=== PATIENT | female | born 1940 | race Caucasian/White ===

== ENCOUNTER 2020-06-27 09:12 | Outpatient (REF) | payer OTHER, SELFPAY ==
[2020-06-27 11:45] LABS: Alanine Aminotransferase 16 U/L (0-31); Albumin Level 4.3 g/dL (3.5-5.0); Alkaline Phosphatase 74 U/L (39-117); Anion Gap 11 (12-20); Aspartate Amino Transferase 19 U/L (5-31); Bilirubin Total 1.2 mg/dL (0.0-1.0); Blood Urea Nitrogen 15 mg/dL (9-16); Calcium 9.4 mg/dL (8.4-10.2); Carbon Dioxide 29 mmol/L (22-29); Chloride 105 mmol/L (96-108); Cholesterol 183 mg/dL; Estimated Glomerular Filt Rate > 60; Glucose Fasting 101 mg/dL (60-99); HDL Cholesterol 69 mg/dL; LDL Cholesterol Calculated 102 mg/dl; Potassium 4.8 mmol/l (3.3-5.1); Sodium 140 mmol/L (135-145); Total Protein 7.2 g/dL (6.5-8.0); Triglycerides 61 mg/dL
[2020-06-27 11:51] LABS: Estimated Average Glucose 126 mg/dL
== END 2020-06-27 09:13 | disposition home or self-care (01) ==
LOC: HO.MANLR 09:12
PROVIDERS: PCP Internal Medicine; Visit Provider Internal Medicine
DX: I10 Essential (primary) hypertension (principal); E11.9 Type 2 diabetes mellitus without complications
CPT/HCPCS: 80053; 80061; 83036

== ENCOUNTER 2020-10-23 09:48 | Outpatient (REF) | payer OTHER, SELFPAY ==
[2020-10-23 11:30] LABS: Estimated Average Glucose 131 mg/dL; Hemoglobin A1c % 6.2 %
== END 2020-10-23 09:49 | disposition home or self-care (01) ==
LOC: HO.MANLR 09:48
PROVIDERS: PCP Internal Medicine; Visit Provider Internal Medicine
DX: I10 Essential (primary) hypertension (principal); E11.9 Type 2 diabetes mellitus without complications
CPT/HCPCS: 36415; 83036

== ENCOUNTER 2021-02-20 08:26 | Outpatient (REF) | payer OTHER, SELFPAY ==
[2021-02-20 11:44] LABS: Estimated Average Glucose 128 mg/dL; Hemoglobin A1c % 6.1 %
[2021-02-20 12:04] LABS: Alanine Aminotransferase 12 U/L (0-31); Albumin Level 4.2 g/dL (3.5-5.0); Alkaline Phosphatase 73 U/L (39-117); Anion Gap 14 (12-20); Aspartate Amino Transferase 15 U/L (5-31); Bilirubin Total 0.9 mg/dL (0.0-1.0); Blood Urea Nitrogen 14 mg/dL (9-16); Calcium 9.5 mg/dL (8.4-10.2); Carbon Dioxide 24 mmol/L (22-29); Chloride 106 mmol/L (96-108); Cholesterol 162 mg/dL; Estimated Glomerular Filt Rate > 60; Glucose Fasting 101 mg/dL (60-99); HDL Cholesterol 52 mg/dL; LDL Cholesterol Calculated 93 mg/dl; Potassium 4.4 mmol/L (3.3-5.1); Sodium 140 mmol/L (135-145); Total Protein 7.2 g/dL (6.5-8.0); Triglycerides 86 mg/dL
[2021-02-20 17:16] LABS: Creatinine Urine 137.81 mg/dL
== END 2021-02-20 08:27 | disposition home or self-care (01) ==
LOC: HO.MANLDS 08:26
PROVIDERS: PCP Internal Medicine; Visit Provider Internal Medicine
DX: E11.9 Type 2 diabetes mellitus without complications (principal)
CPT/HCPCS: 36415; 80053; 80061; 82043; 83036

== ENCOUNTER 2021-06-19 09:06 | Outpatient (REF) | payer OTHER, SELFPAY ==
[2021-06-19 11:06] LABS: Estimated Average Glucose 128 mg/dL; Hemoglobin A1c % 6.1 %
== END 2021-06-19 09:07 | disposition home or self-care (01) ==
LOC: HO.MANLDS 09:06
PROVIDERS: PCP Internal Medicine; Visit Provider Internal Medicine
DX: E11.9 Type 2 diabetes mellitus without complications (principal)
CPT/HCPCS: 36415; 83036

== ENCOUNTER 2021-10-19 13:36 | Outpatient (REF) | payer OTHER, SELFPAY ==
[2021-10-20 07:30] LABS: Estimated Average Glucose 131 mg/dL; Hemoglobin A1c % 6.2 %
== END 2021-10-19 13:37 | disposition home or self-care (01) ==
LOC: HO.MANLDS 13:36
PROVIDERS: PCP Internal Medicine; Visit Provider Internal Medicine
DX: E11.9 Type 2 diabetes mellitus without complications (principal)
CPT/HCPCS: 36415; 83036

== ENCOUNTER 2022-04-29 08:12 | Outpatient (REF) | payer OTHER, SELFPAY ==
[2022-04-29 12:01] LABS: Estimated Average Glucose 120 mg/dL; Hemoglobin A1c % 5.8 %
[2022-04-29 12:14] LABS: Alanine Aminotransferase 8 U/L (0-31); Albumin Level 4.1 g/dL (3.5-5.0); Alkaline Phosphatase 77 U/L (39-117); Anion Gap 13 (12-20); Aspartate Amino Transferase 14 U/L (5-31); Bilirubin Total 1.3 mg/dL (0.0-1.0); Blood Urea Nitrogen 15 mg/dL (9-16); Calcium 9.4 mg/dL (8.4-10.2); Carbon Dioxide 25 mmol/L (22-29); Chloride 104 mmol/L (96-108); Cholesterol 169 mg/dL; Estimated Glomerular Filt Rate > 60; Glucose Random 105 mg/dL (60-115); HDL Cholesterol 58 mg/dL; LDL Cholesterol Calculated 98 mg/dl; Potassium 4.4 mmol/L (3.3-5.1); Sodium 138 mmol/L (135-145); Total Protein 7.1 g/dL (6.5-8.0); Triglycerides 68 mg/dL
[2022-04-29 12:18] LABS: Creatinine Urine 20.97 mg/dL; Microalbum/Creatinine Ratio Ur 28.6 ug/mg cr
== END 2022-04-29 08:13 | disposition home or self-care (01) ==
LOC: HO.MANLDS 08:12
PROVIDERS: Visit Provider Internal Medicine
DX: E11.9 Type 2 diabetes mellitus without complications (principal)
CPT/HCPCS: 36415; 80053; 80061; 82043; 83036

== ENCOUNTER 2022-10-21 09:25 | Outpatient (REF) | payer OTHER, SELFPAY ==
[2022-10-21 11:23] LABS: Estimated Average Glucose 126 mg/dL; Hemoglobin A1C 151.4296 umol/L
[2022-10-21 11:41] LABS: Cholesterol 158 mg/dL; HDL Cholesterol 51 mg/dL; LDL Cholesterol Calculated 92 mg/dl; Triglycerides 79 mg/dL
== END 2022-10-21 09:26 | disposition home or self-care (01) ==
LOC: HO.MANLDS 09:25
PROVIDERS: Visit Provider Internal Medicine
DX: E11.9 Type 2 diabetes mellitus without complications (principal); E78.5 Hyperlipidemia, unspecified
CPT/HCPCS: 36415; 80061; 83036

== ENCOUNTER 2023-03-25 08:48 | Outpatient (REF) | payer OTHER, SELFPAY ==
[2023-03-25 13:56] LABS: Estimated Average Glucose 114 mg/dL; Hemoglobin A1C 148.8474 umol/L; Hemoglobin A1c % 5.6 %
== END 2023-03-25 08:49 | disposition home or self-care (01) ==
LOC: HO.MANLDS 08:48
PROVIDERS: Visit Provider Internal Medicine
DX: E11.9 Type 2 diabetes mellitus without complications (principal)
CPT/HCPCS: 36415; 83036

== ENCOUNTER 2023-10-31 07:30 | Outpatient (REF) | payer OTHER, SELFPAY ==
[2023-10-31 14:05] LABS: Creatinine Urine 93.04 mg/dL; Microalbum/Creatinine Ratio Ur 37.6 ug/mg cr (<30)
== END 2023-10-31 07:31 | disposition home or self-care (01) ==
LOC: HO.MANLNP 07:30
PROVIDERS: Visit Provider Internal Medicine
DX: E11.9 Type 2 diabetes mellitus without complications (principal)
CPT/HCPCS: 82043; 82570

== ENCOUNTER 2024-05-03 | Outpatient (REF) | payer OTHER, SELFPAY ==
[2024-05-03 13:58] LABS: Estimated Average Glucose 120 mg/dL; Hemoglobin A1C 144.2101 umol/L; Hemoglobin A1c % 5.8 % (<6.0)
== END 2024-05-03 00:01 | disposition home or self-care (01) ==
LOC: HO.MANLDS
PROVIDERS: Visit Provider Internal Medicine
DX: R73.01 Impaired fasting glucose (principal)
CPT/HCPCS: 36415; 83036

== ENCOUNTER 2024-12-10 09:01 | Outpatient (REF) | payer OTHER, SELFPAY ==
--- OUTSIDE RECORDS SUMMARY | 2024-12-10 09:31 | XMS_ITS | Data Portability ---
Author Organization [facility] Service Address [address] [place] [address] Assessment Encounter Date Assessment Date Assessment LastModified by Organization Details LastModified Time 05/07/2022 05/07/2022 [id number] [place] [id number] (STITCHER HAND) [facility] MODERATE MUST MEET 2 OUT OF 3 ELEMENTS: PROBLEMS, DATA OR RISK ELEMENT 1: PROBLEMS ADDRESSED 1 OR MORE CHRONIC ILLNESS WITH EXACERBATION OR 2 OR MORE STABLE CHRONIC ILLNESSES OR 1 UNDIAGNOSED NEW PROBLEM OR 1 ACUTE ILLNESS W/SYMPTOMS OR 1 ACUTE COMPLICATED INJURY ELEMENT 2: DATA MUST MEET 1 OF 3 CATEGORIES CATEGORY 1: REVIEW OF PRIOR EXTERNAL NOTES, REVIEW OF RESULTS, ORDERING OF EACH TEST, ASSESSMENT REQUIRING INDEPENDENT HISTORIAN OR CATEGORY 2: INDEPENDENT INTERPRETATION OF TESTS BY ANOTHER PHYSICIAN OR SPECIALIST OR CATEGORY 3: DISCUSSION OF MGT OR TEST INTERPRETATION W/EXTERNAL PHYSICIAN OR SPECIALIST ELEMENT 3: RISK RISK OF COMPLICATIONS AND/OR MORBIDITY OR MORTALITY OF PATIENT MANAGEMENT PROVIDER MUST THOROUGHLY DOCUMENT EACH ELEMENT THAT IS COVERED Not available 05/07/2022 10:30:44 10/30/2022 10/30/2022 [id number] [place] [id number] (STITCHER HAND) [facility] MUST MEET 2 OUT OF 3 ELEMENTS: PROBLEMS, DATA OR RISK ELEMENT 1: PROBLEMS ADDRESSED 1 OR MORE CHRONIC ILLNESS WITH EXACERBATION OR 2 OR MORE STABLE CHRONIC ILLNESSES OR 1 UNDIAGNOSED NEW PROBLEM OR 1 ACUTE ILLNESS W/SYMPTOMS OR 1 ACUTE COMPLICATED INJURY ELEMENT 2: DATA MUST MEET 1 OF 3 CATEGORIES CATEGORY 1: REVIEW OF PRIOR EXTERNAL NOTES, REVIEW OF RESULTS, ORDERING OF EACH TEST, ASSESSMENT REQUIRING INDEPENDENT HISTORIAN OR CATEGORY 2: INDEPENDENT INTERPRETATION OF TESTS BY ANOTHER PHYSICIAN OR SPECIALIST OR CATEGORY 3: DISCUSSION OF MGT OR TEST INTERPRETATION W/EXTERNAL PHYSICIAN OR SPECIALIST ELEMENT 3: RISK RISK OF COMPLICATIONS AND/OR MORBIDITY OR MORTALITY OF PATIENT MANAGEMENT PROVIDER MUST THOROUGHLY DOCUMENT EACH ELEMENT THAT IS COVERED Not available 10/30/2022 10:12:24 04/02/2023 04/02/2023 [id number] [place] [id number] (STITCHER HAND) [facility] MODER[facility] MUST MEET 2 OUT OF 3 ELEMENTS: PROBLEMS, DATA OR RISK ELEMENT 1: PROBLEMS ADDRESSED 1 OR MORE CHRONIC ILLNESS WITH EXACERBATION OR 2 OR MORE STABLE CHRONIC ILLNESSES OR 1 UNDIAGNOSED NEW PROBLEM OR 1 ACUTE ILLNESS W/SYMPTOMS OR 1 ACUTE COMPLICATED INJURY ELEMENT 2: DATA MUST MEET 1 OF 3 CATEGORIES CATEGORY 1: REVIEW OF PRIOR EXTERNAL NOTES, REVIEW OF RESULTS, ORDERING OF EACH TEST, ASSESSMENT REQUIRING INDEPENDENT HISTORIAN OR CATEGORY 2: INDEPENDENT INTERPRETATION OF TESTS BY ANOTHER PHYSICIAN OR SPECIALIST OR CATEGORY 3: DISCUSSION OF MGT OR TEST INTERPRETATION W/EXTERNAL PHYSICIAN OR SPECIALIST ELEMENT 3: RISK RISK OF COMPLICATIONS AND/OR MORBIDITY OR MORTALITY OF PATIENT MANAGEMENT PROVIDER MUST THOROUGHLY DOCUMENT EACH ELEMENT THAT IS COVERED Not available 04/02/2023 09:56:11 11/05/2023 11/05/2023 [id number] [place] [id number] (STITCHER HAND) [facility] MODER[facility] MUST MEET 2 OUT OF 3 ELEMENTS: PROBLEMS, DATA OR RISK ELEMENT 1: PROBLEMS ADDRESSED 1 OR MORE CHRONIC ILLNESS WITH EXACERBATION OR 2 OR MORE STABLE CHRONIC ILLNESSES OR 1 UNDIAGNOSED NEW PROBLEM OR 1 ACUTE ILLNESS W/SYMPTOMS OR 1 ACUTE COMPLICATED INJURY ELEMENT 2: DATA MUST MEET 1 OF 3 CATEGORIES CATEGORY 1: REVIEW OF PRIOR EXTERNAL NOTES, REVIEW OF RESULTS, ORDERING OF EACH TEST, ASSESSMENT REQUIRING INDEPENDENT HISTORIAN OR CATEGORY 2: INDEPENDENT INTERPRETATION OF TESTS BY ANOTHER PHYSICIAN OR SPECIALIST OR CATEGORY 3: DISCUSSION OF MGT OR TEST INTERPRETATION W/EXTERNAL PHYSICIAN OR SPECIALIST ELEMENT 3: RISK RISK OF COMPLICATIONS AND/OR MORBIDITY OR MORTALITY OF PATIENT MANAGEMENT PROVIDER MUST THOROUGHLY DOCUMENT EACH ELEMENT THAT IS COVERED Not available 11/05/2023 13:51:04 05/05/2024 05/05/2024 [id number] [place] [id number] (STITCHER HAND) [facility] MODER[facility] MUST MEET 2 OUT OF 3 ELEMENTS: PROBLEMS, DATA OR RISK ELEMENT 1: PROBLEMS ADDRESSED 1 OR MORE CHRONIC ILLNESS WITH EXACERBATION OR 2 OR MORE STABLE CHRONIC ILLNESSES OR 1 UNDIAGNOSED NEW PROBLEM OR 1 ACUTE ILLNESS W/SYMPTOMS OR 1 ACUTE COMPLICATED INJURY ELEMENT 2: DATA MUST MEET 1 OF 3 CATEGORIES CATEGORY 1: REVIEW OF PRIOR EXTERNAL NOTES, REVIEW OF RESULTS, ORDERING OF EACH TEST, ASSESSMENT REQUIRING INDEPENDENT HISTORIAN OR CATEGORY 2: INDEPENDENT INTERPRETATION OF TESTS BY ANOTHER PHYSICIAN OR SPECIALIST OR CATEGORY 3: DISCUSSION OF MGT OR TEST INTERPRETATION W/EXTERNAL PHYSICIAN OR SPECIALIST ELEMENT 3: RISK RISK OF COMPLICATIONS AND/OR MORBIDITY OR MORTALITY OF PATIENT MANAGEMENT PROVIDER MUST THOROUGHLY DOCUMENT EACH ELEMENT THAT IS COVERED Not available 05/05/2024 11:50:45 Plan of Treatment Reminders Order Date Submit Date Provider Last Modified By Organization Details Last Modified Time Details Appointments FOLLOW UP 15 2024 10:45A M DR SARAH Not available Not available Not available Lab HbA1c (hemoglob in A1c), blood 2023 024 [facility], [address] [place] [address], [id number], 05/05/2024 11:54:05 microalbu min/creat inine, ratio panel, urine 2023 024 [facility], [address] [place] [address], [id number], 05/05/2024 11:54:05 CMP, serum or plasma 2023 024 [facility], [address] [place] [address], [id number], 05/05/2024 11:54:05 CBC 2023 024 [facility], [address] [place] [address], [place], [address], 05/12/2024 09:17:45 lipid panel, serum 2023 024 [facility], [address] [place] [address], [id number], 05/05/2024 11:54:05 HbA1c (hemoglob in A1c), blood 2023 024 [facility], [address] [place] [address], [address], 11/05/2023 13:56:34 Referral None recorded. Procedures None recorded. Surgeries None recorded. Imaging MAMMO, screening , digital, bilateral 2022 023 [facility] Not available 11/13/2022 08:16:16 Medication Orders atenolol 50 mg tablet 2023 024 [facility] [address] [place], [address], 11/05/2023 13:55:24 diltiazem CD 360 mg capsule,e xtended release 24 hr 2023 024 [facility] [address] [place], [address], 11/05/2023 13:55:22 simvastat in 10 mg tablet 2023 024 [facility] [address] [place], [address], 11/05/2023 13:55:22 simvastat in 10 mg tablet 2022 023 [facility] [address] [place], [address], 10/30/2022 10:13:43 atenolol 50 mg tablet 2022 023 [facility] [address] [place], [address], 10/30/2022 10:13:44 diltiazem CD 360 mg capsule,e xtended release 24 hr 2022 023 [facility] [address] [place], [address], 10/30/2022 10:13:44 simvastat in 10 mg tablet 2021 022 [facility], [address] [place] [address], [address], 05/07/2022 10:33:07 diltiazem CD 360 mg capsule,e xtended release 24 hr 2021 022 [facility], [address] [place], [address], 05/07/2022 10:33:07 atenolol 50 mg tablet 2021 [facility], [address] [place], [address], 05/07/2022 10:33:08 Patient TargetsNo targets recorded. Patient Instructions Encounter Date Encounter Id Patient Instructions Last Modified By Organization Details Last Modified Time 05/07/2022 [id number] type 2 diabetes: care instructions Not available 05/07/2022 10:33:04 10/30/2022 [id number] mammogram: about this test Not available 10/30/2022 10:16:59 diabetic foot exam* Not availa ble 10/30/2022 10:13:40 04/02/2023 [id number] type 2 diabetes: care instructions Not available 04/02/2023 10:00:22 11/05/2023 [id number] prediabetes: car e instructions Not available 11/05/2023 13:55:20 supraventricular tachycardia: care instructions Not available 11/05/2023 13:55:19 05/05/2024 [id number] prediabetes: car e instructions Not available 05/05/2024 11:51:44 supraventricular tachycardia: care instructions Not available 05/05/2024 11:51:44 high blood press ure: care instructions Not available 05/05/2024 11:51:44 learning about h igh blood pressure Not available 05/05/2024 11:51:44 Reason for Referral None Reported. Results Created Date Observation Date Name Description Value Unit Range Abnormal Flag Note LastModifiedBy Organization Detail LastModifiedTime 12/03/1912/02/2022 MAMMO , scree clemente, digit al, bilat eral No observ ation record ed. [facility] [address] [place], [address], 04/02/2023 09:56:14 01/06/20 24 12/31/2023 MAMMO , scree clemente, digit al, bilat eral No observ ation record ed. [facility] [address] [place], [address], 05/05/2024 11:51:33 Result Notes None recorded. Problems Name Problem SNOMED Code Status Onset Date Resolution Date Notes Provider Name and Address Organization Details Recorded Time Impaired fasting glycemia 949079963 Active 2021 Aman Sarah [address], [address], [facility] 2 10:30:12 Type 2 diabetes mellitus without complica tion 741155237 Active 2021 Aman Sarah DO [address] [place] [address], [phone], [facility] 2 10:31:26 Hypercho lesterol emia 72938805 Active 2017 Aman Sarah [address], [address], [facility] 9 09:41:53 Diabetes mellitus 79754284 Completed 201701/18/2018November NAHID Rosa [address] [place] [address], [address], [facility] 8 18:21:31 Paroxysm al supraven tricular tachycar alonzo 47321528 Active 2017 Aman Sarah DO [address] [place] [address], [address], [facility] 9 09:41:53 [facility] hyperten patrick 91045297 Active 2017 Aman Sarah DO [address] [place] [address], [address], [facility] 9 09:41:53 Cataract 957927031 Active 2017 Aman Sarah DO [address] [place], [address], [facility] 9 09:41:52 Developm ental disorder 6099281 Active 2017 Aman Sarah, DO [address] [place], [address], [facility] 9 09:41:53 Problem Notes None recorded. Procedures Surgical History None recorded. Imaging Results Imaging Date Name Status LastModified by Organiz ation Details LastModified Time 12/02/2022 MAMMO, screening, digital, bilateral completed [address] [facility] [address] [place] [address], [address], 04/02/2023 09:56:14 12/31/2023 MAMMO, screening, digital, bilateral completed [address] [facility] [address] [place], [address], 05/05/2024 11:51:33 Procedure Notes None recorded. Medical Equipment None Reported. Allergies No known drug allergies Medications Name Sig Start Date Stop Date Status Note LastModified by Organization Details LastModified Time freestyle subhash lite 07/30 completed Not Available Not Available Not Available metformin 500 mg tablet TAKE 1 TABLET BY MOUTH ONCE A DAY 04/30 completed Not Available Not Available Not Available diltiazem CD 180 mg capsule,ext ended release 24 hr Take 1 capsule twice a day by oral route for 90 days. 04/30 completed Not Available Not Available Not Available bacitracin 500 unit/gram eye ointment APPLY 1 APPLICATI ON IN RIGHT EYE FOUR TIMES A DAY 11/04 completed Not Available Not Available Not Available simvastatin 10 mg tablet TAKE 1 TABLET BY MOUTH EVERY DAY 2024 active Not Available Not Available Not Avai lable atenolol 25 mg tablet 01/12 completed Not Available Not Available Not Available diltiazem CD 360 mg capsule,ext ended release 24 hr TAKE 1 CAPSULE BY MOUTH EVERY DAY active Not Available Not Available No t Available erythromyci n 5 mg/gram (0.5 %) eye ointment APPLY 1 APPLICATI ON IN RIGHT EYE FOUR TIMES A DAY 11/04 completed Not Available Not Available Not Available atenolol 50 mg tablet TAKE 1 TABLET BY MOUTH EVERY DAY 2024 active Not Available Not Available Not Avai lable Fish Oil 2000mg once a day active Not Available Not Available No t Available Aspir-81 Take one tablet once a day active Not Available Not Available No t Available FreeStyle Lite Strips 07/04 completed Not Available Not Available Not Available Fluad 65yr up(PF)45 mcg(15 mcgx3)/0.5 mL intramuscul ar syringe 01/12 completed Not Available Not Available Not Available Fluad 65yr up(PF)45 mcg(15 mcgx3)/0.5 mL intramuscul ar syringe 04/30 completed Not Available Not Available Not Available Tiadylt ER 360 mg capsule,ext ended release Take 1 capsule every day by oral route for 90 days. 07/04 completed Not Available Not Available Not Available Fluzone High-Dose Quad (PF) 240 mcg/0.7 mL IM syringe ADM 0.7ML IM UTD 07/04 completed Not Available Not Available Not Available Vitals Date Recorded Body height Body mass index (BMI) Body weight Heart rate Oxygen saturation Oxygen saturation in Arterial blood by Pulse oximetry Systolic blood pressure Diastolic blood pressure Provider Name and Address Organization Details Last Updated DateTime 2 160.02 cm 27.6 kg/m2 93942.6 9 g 70 /min 98 % 98 % 136 mm[Hg] 78 mm[Hg] Reta Puri [facility] 2 10:14:15 Date Recorded Body height Body mass index (BMI) Body weight Heart rate Oxygen saturation Oxygen saturation in Arterial blood by Pulse oximetry Systolic blood pressure Diastolic blood pressure Provider Name and Address Organization Details Last Updated DateTime 3 160.02 cm 29.5 kg/m2 66447.2 1 g 73 /min 98 % 98 % 126 mm[Hg] 60 mm[Hg] Aman Sarah, DO [address] [place], [address], [facility] 3 09:57:38 Date Recorded Body height Body mass index (BMI) Body weight Heart rate Oxygen saturation Oxygen saturation in Arterial blood by Pulse oximetry Systolic blood pressure Diastolic blood pressure Provider Name and Address Organization Details Last Updated DateTime 3 160.02 cm 27.1 kg/m2 93761.6 3 g 73 /min 98 % 98 % 132 mm[Hg] 70 mm[Hg] Lashell Larry [facility] 3 09:38:03 Date Recorded Body height Body mass index (BMI) Body weight Heart rate Oxygen saturation Oxygen saturation in Arterial blood by Pulse oximetry Systolic blood pressure Diastolic blood pressure Provider Name and Address Organization Details Last Updated DateTime 4 160.02 cm 29.4 kg/m2 68770.2 6 g 85 /min 98 % 98 % 146 mm[Hg] 88 mm[Hg] Christina Tulio [facility] 4 13:43:27 Date Recorded Body height Body mass index (BMI) Body weight Heart rate Oxygen saturation Oxygen saturation in Arterial blood by Pulse oximetry Systolic blood pressure Diastolic blood pressure Provider Name and Address Organization Details Last Updated DateTime 4 160.02 cm 24.3 kg/m2 10013.1 5 g 58 /min 97 % 97 % 132 mm[Hg] 76 mm[Hg] Lashell Larry [facility] 4 11:18:21 Social History Question Answer Notes LastModified by Organizat ion Details LastModified Time Tobacco Smoking Status [facility]/12[facility] 10:26:49 What Was The Date Of Your Most Recent Tobacco Screening? 05/05/2024 Information not available 05/05/2024 Do You Or Have You Ever Used Any Other Forms Of Tobacco Or Nicotine? No Information not available 10/30/2022 Sex: Unknown Functional Status None recorded. Mental Status None recorded. Family History Relationship Description Onset Age of this Age Resolved Age Notes LastModified by Organization Details LastModified Time Father Pancreatitis 45 edgar Not avail able 05/22/2018 09:03:20 Mother Alzheimer's disease 90 95 edgar Not available 2017 09:03:57 Sister Hypertensive disorder edgar Not available 2017 09:04:25 Medical History Condition Response Coronary Artery Disease N Gout N Blood Diseases N Kidney Stones N Hyperthyroidism N Blood Transfusion N Breast Cancer N Lung Disease N Depression N COPD N Hypothyroidism N Defects or Inherited Disease N Difficulty Swallowing N Anxiety Disorder N Muscle, Joint, or Bone Problems N Vision or Eye Problems Y Arthritis N Cancer N Varicosities N Bladder or Kidney Problems N High Cholesterol Y Liver Disease N Fibromyalgia N Headaches N Kidney Disease N Allergies/Hayfever N Heart Problems Y Thyroid Problems N GI Problems N Anemia N Constipation N Diabetes Y Seizures/Epilepsy N Tuberculosis N Congestive Heart Failure (CHF) N Abuse/Domestic Violence N Diverticulitis N Asthma N Reflux/GERD N Hepatitis N Heart Disease N Pulmonary Embolism N Chronic Ear Infections N Hypertension Y Chicken Pox Autism Spectrum Disorder (ASD) N Thrombophilias N Gynecological History Statement/Question Response If Post Menopausal, Age at Menopause 54 Age at Menarche 16 Obstetrics History GPAL:G 0 P 0 0 0 0 Immunizations Vaccine Type Date Status Note Provider Nam e and Address Organization Details Recorded Time zoster, unspecified formulation 11/01/19 21 completed Aman Sarah DO [address] [place] [address], [address], [facility] 02/28/2021 09:00:43 zoster, unspecified formulation 01/06/20 21 completed Aman Sarah DO [address] [place] [address], [address], [facility] 02/28/2021 09:00:53 Influenza, split virus, quadrivalent, preservative 04/24/20 18 completed Aman Sarah DO [address] [place] [address], [address], [facility] 04/30/2019 09:42:12 COVID-19, mRNA, LNP-S, PF, 30 mcg/0.3 mL dose 06/13/20 21 [facility] 06/29/2021 09:47:38 Influenza, split virus, quadrivalent, preservative 04/26/20 21 completed Kayleen constantino [facility] 06/29/2021 09:48:46 pneumococcal polysaccharide PPV23 08/11/19 10 completed Aman Sarah DO [address] [place] [address], [address], [facility] 04/30/2019 09:42:12 Pneumococcal conjugate PCV 13 07/11/20 16 completed Aman Sarah, [address], [address], [facility] 04/30/2019 09:42:12 Tdap 10/10/19 16 completed Aman Sarah, [address], [address], [facility] 04/30/2019 09:42:12 influenza, intradermal, quadrivalent, preservative free 04/29/20 22 [facility] 05/07/2022 10:12:35 Influenza, split virus, quadrivalent, preservative 04/24/20 19 completed Aman Sarah, [address], [address], [facility] 04/30/2019 09:42:12 Influenza, split virus, quadrivalent, preservative 04/30/20 20 completed [facility] 07/04/2020 09:31:05 COVID-19, mRNA, LNP-S, PF, 30 mcg/0.3 mL dose 09/22/19 21 completed Kayleen constantino [facility] 10/31/2020 14:07:53 COVID-19, mRNA, LNP-S, PF, 30 mcg/0.3 mL dose 10/15/19 21 [facility] 10/31/2020 14:07:59 Past Encounters Encounter ID Performer Location Encounter Start Date Encounter Closed Date Diagnosis/Indication Diagnosis SNOMED-CT Code Diagnosis ICD10 Code Diagnosis Note [id number] Aman Sarah [facility] [address] [facility],[place] [address] 01/12/2018 09:54:45 01/12/2018 17:13:11 Hypercholesterolemia 68564071 E78.00 stable, continue simvastati n Type 2 alonzo betes mellitus 19239084 E11.9 A1C 5.9 excellent Supraventr icular tachycardia 3783173 I47.1 on meds, stable RRR [id number] Aman Sarah [facility] [address] [facility],[place] [address] 05/22/2018 08:47:44 05/22/2018 10:59:28 Adult health examination 833142392 Z00.00 Has mammo scheduled 06/05 Active or passive immunization 969588253 Z23 Had flu vaccine at pharmacy 04/24/18 Hypercholesterolemia 136 25965 E78.00 stable, continue simvastati n Type 2 alonzo betes mellitus without complication 459468974 E11.9 A1C 5.7 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, independen t living Essential hypertension 18714036 I10 well controlled Paroxysmal supraventricular tachycardia 18128428 I47.1 controlled atenolol Screening procedure 2012 5006 Z13.9 [id number] Aman Sarah [facility] [address] [facility],[place] [address] 09/30/2018 10:45:50 09/30/2018 11:58:05 Type 2 diabetes mellitus without complication 493862130 E11.9 A1C 6.2 Paroxysmal supraventricular tachycardia 88060651 I47.1 controlled w/atenolol Hypercholesterolemia 136 32766 E78.00 stable, continue simvastati n Essential hypertension 27836577 I10 well controlled [id number] Aman Sarah [facility] [address] [facility],[place] [address] 01/25/2019 10:22:45 01/25/2019 11:15:01 Type 2 diabetes mellitus without complication 334131100 E11.9 excellent job a1c is 6.0 doing fantastic Hypercholesterolemia 136 48467 E78.00 stable overall will cont simvastati n Essential hypertension 06630925 I10 excellent overall no change in meds [id number] Aman Sarah [facility] [address] [facility] [address],[place] [address] 04/30/2019 09:22:42 04/30/2019 10:59:17 Essential hypertension 84728997 I10 excellent overall no change in meds Type 2 alonzo betes mellitus without complication 167083386 E11.9 excellent job a1c is 5.6 doing fantastic so we will stop her metformin [id number] Aman Sarah [facility] [address] [facility] [address],[place] [address] 07/30/2019 10:53:14 07/30/2019 11:25:55 Type 2 diabetes mellitus without complication 906204751 E11.9 excellent job a1c is 6.0 doing fantastic off her metformin Essential hypertension 26314064 I10 excellent overall no change in meds Hypercholesterolemia 136 72830 E78.00 stable overall will cont simvastati n [id number] Aman Sarah DO [facility] [address] [facility] [address],[place] [address] 11/01/2019 09:41:43 11/01/2019 10:43:31 Essential hypertension 35612787 I10 excellent overall no change in meds: BP 128/70 Type 2 alonzo betes mellitus without complication 183921927 E11.9 excellent job a1c is 6.0 doing fantastic off her metformin Hypercholesterolemia 136 82401 E78.00 stable overall will cont simvastati n [id number] Aman La Debo [facility] [address] [facility] [address],[place] [address] 02/16/2020 09:50:34 02/16/2020 10:41:32 Essential hypertension 53815589 I10 excellent overall no change in meds: BP 128/70 Type 2 alonzo betes mellitus without complication 198205939 E11.9 excellent job a1c is 6.0 doing fantastic off her metformin Hypercholesterolemia 136 80451 E78.00 stable overall will cont simvastati n Paroxysmal supraventricular tachycardia 69553159 I47.1 [place] [id number] Aman Sarah [facility] [address] [facility] [address],[place] [address] 07/04/2020 09:25:52 07/04/2020 09:59:26 Active or passive immunization 834755660 Z23 here Adult heal th examination 521276556 Z00.00 doing great feels good very active Hypercholesterolemia 136 39884 E78.00 stable overall [place] [id number] Aman La Debo [facility] [address] [facility] [address],[place] [address] 10/31/2020 13:42:06 10/31/2020 14:38:32 Essential hypertension 96572377 I10 excellent overall no change in meds: BP 128/70 no major issues no cp Type 2 alonzo betes mellitus without complication 996123087 E11.9 excellent job a1c is 6.2 and was 6.0 so she is doing well overall doing fantastic off her metformin she is eating well wgt is about the same Paroxysmal supraventricular tachycardia 53111050 I47.1 quiet and asymptomat ic no palpitatio ns no swelling in legs [id number] Aman Sarah [facility] [address] [facility] [address] [address] 02/28/2021 08:48:55 02/28/2021 09:17:05 Type 2 diabetes mellitus without complication 033896499 E11.9 excellent job a1c is now 6.1 and was 6.2 and was 6.0 so she is doing well overall doing fantastic off her metformin she is eating well wgt is about the same Hypercholesterolemia 136 18923 E78.00 stable overall will cont simvastati n Essential hypertension [id number] I10 excellent overall no change in meds: BP 128/70 no major issues no cp Paroxysmal supraventricular tachycardia 50012107 I47.1 quiet and asymptomat ic no palpitatio ns no swelling in legs [id number] Aman Sarah DO [facility] [address] [facility] [address],[place] [address] 06/29/2021 09:37:08 06/29/2021 11:04:03 Type 2 diabetes mellitus without complication [id number] E11.9 excellent job a1c is again 6.1 and was 6.2 and was 6.0 so she is doing well overall doing fantastic off her metformin she is eating well wgt is about the same Essential hypertension 24725750 I10 excellent overall no change in meds: BP 148/70 no major issues no cp Paroxysmal supraventricular tachycardia 24124576 I47.1 quiet and asymptomat ic no palpitatio ns no swelling in legs [id number] Aman Sarah [facility] [address] [facility],[place] [address] 10/31/2021 11:04:37 11/02/2021 14:56:46 Type 2 diabetes mellitus without complication [id number] E11.9 excellent job a1c is 6.2 again 6.1 and was 6.2 and was 6.0 so she is doing well overall doing fantastic off her metformin she is eating well wgt is about the same Paroxysmal supraventricular tachycardia 09893189 I47.1 quiet and asymptomat ic no palpitatio ns no swelling in legs Essential hypertension 94314938 I10 excellent overall no change in meds: BP 148/70 [place] [id number] Aman Sarah DO [facility] [address] [facility] [address] 05/07/2022 09:28:25 05/07/2022 10:45:51 Type 2 diabetes mellitus without complication 736264076 E11.9 excellent job a1c is 5.8!!!!!!! again 6.1 and was 6.2 and was 6.0 so she is doing well overall doing fantastic off her metformin no meds she is eating well and is very active outside wgt is about the same Essential hypertension 36939922 I10 excellent overall no change in meds: BP 148/70 no major issues no cp Hypercholesterolemia 136 49434 E78.00 stable overall will cont simvastati n Impaired f asting glycemia 976650807 R73.01 she has rendered the diabetes dx moot she is now back to pre diabetes Paroxysmal supraventricular tachycardia 44405964 I47.1 quiet and asymptomat ic no palpitatio ns no swelling in legs [id number] Aman Sarah DO [facility] [address] [facility] [address] 10/30/2022 09:17:27 10/30/2022 10:55:44 Type 2 diabetes mellitus without complication 375030837 E11.9 excellent job a1c is6.0 she was 5.8!!!!!!! again 6.1 and was 6.2 and was 6.0 so she is doing well overall doing fantastic off her metformin no meds she is eating well and is very active outside wgt is elevated but still doing well needs to get walking again Impaired f asting glycemia 205144252 R73.01 she has rendered the diabetes dx moot she is now back to pre diabetes Essential hypertension 90339381 I10 bp are excellent no changes needed Paroxysmal supraventricular tachycardia 03413032 I47.1 quiet and asymptomat ic no palpitatio ns no swelling in legs Advance care planning 71 9281914 Z71.89 utd Hypercholesterolemia 136 81159 E78.00 will renew her she is vigorous and healthy and active so we will cont Screening mammography 24 183514 Z12.31 [id number] Aman Sarah [facility] [address] [facility],[place] [address] 04/02/2023 09:25:51 04/02/2023 10:32:35 Pre-surgery evaluation [id number] Z01.818 Per the 2017 ACC cardiac risk stratifica tion (revised) feliz is cleared for the proposed surgery on her right eye . Patient understand s to take her usual medicines on the morning of her procedure except her asa. Essential hypertension 19249359 I10 bp are excellent no changes needed Type 2 laonzo betes mellitus without complication 389734408 E11.9 excellent job a1c is5.6 doing fantastic off her metformin no meds [id number] Aman Sarah [facility] [address] [facility],[place] [address] 11/05/2023 13:23:23 11/05/2023 14:25:59 Type 2 diabetes mellitus without complication 983007426 E11.9 a1c is pending states doing fantastic off her metformin no meds Hypercholesterolemia 136 35530 E78.00 will renew her she is vigorous and healthy and active so we will cont Essential hypertension 48462971 I10 bp are excellent no changes needed Paroxysmal supraventricular tachycardia 54278061 I47.10 Impaired f asting glycemia 556879263 R73.01 she has rendered the diabetes dx moot she is now back to pre diabetes [id number] Aman Sarah [facility] [address] [facility],[place] [address] 05/05/2024 10:02:19 05/05/2024 11:58:34 Depression screening 413826982 Z13.31 neg Essential hypertension 05064009 I10 bp are excellent no changes needed Impaired f asting glycemia 117656158 R73.01 she has rendered the diabetes dx moot she is now back to pre diabetes Paroxysmal supraventricular tachycardia 44403553 I47.10 has been asymptomat ic Health Concerns Section Related Observation LastModified by Organization Detai ls LastModified Time None Recorded Concern Status LastModified by Organization Details LastModified Time None Recorded Advance Directives Directive None Recorded Payers Encounter Date Sequence Insurance Name Policy Number Policy Albrecht Covered Member ID Albrecht Member ID Guarantor Name 05/07/2022 1 [facility] [id number] 1 Ayla Prosciak [id number] Ayla Tiffanie Prosciak 10/30/2022 1 [facility] [id number] 1 Ayla Prosciak [id number] Ayla Moreno Prosciak 04/02/2023 1 [facility] [id number] 1 Ayla Prosciak [id number] Ayla Tiffanie Prosciak 11/05/2023 1 [facility] [id number] 1 Ayla Prosciak [id number] Ayla A Prosciak 05/05/2024 1 [facility] [id number] 1 Ayla Prosciak [id number] Ayla Moreno Prosciak Notes Date Note Type Note Provider Name and Address Organization Details Recorded Time 2 text/htm l here for rechk and is doing fantasticno cp nosobappetite goodbowels good a1c 5.8!! Aman Sarah, DO [address] [place] [address], [phone], [facility] 05/07/2022 10:33:47 3 text/htm l Diabetes F/UReported bypatient.Context:normal range of home blood sugars (in the low 100s); seeing eye doctor regularly; checking feet regularly Associated Symptoms:no weight gain; no weight loss; no dizziness; no sweats; no headaches; no confusion; no increased thirst; no increased appetite; no increased urination; no blurred vision; no numbness of feet; no calluses on feetHypertension F/UReported bypatient.Medications:ta delbert medications as directed; no side effects from medication Lifestyle:regular exercise; limiting/avoiding salt; compliant with low salt diet Associated Symptoms:no dizziness; no lightheadedness; no chest pain; no shortness of breath; no palpitations; no edema; no calf pain with exertion; no headache here for rechk and has been doing wellshe is feeling well and has no cp no sob taking all medicines and she is doing well Aman Sarah DO [address] [place] [address], [id number], [facility] 10/30/2022 10:18:54 3 text/htm l here for a pre ophas been doing wellrequires a eyelid surgery for ingrown hairno major issues no chest pain no sobvery active working outsideeye is bothering her as noted with ingrown lashes Aman Sarah DO [address] [place], [address], [facility] 04/02/2023 10:00:47 4 text/htm l Care Management - DiabetesReported bypatient.Self Care:seeing eye doctor yearly for dilated eye exam; checking feet regularly; normal range of home blood sugars (in the low 100s); no side effects from medications Associated Symptoms:symptoms are usually well controlled; no fatigue; no dizziness; no excessive sweating; no headaches; no confusion; no increased thirst; no increased appetite; no increased urination; no blurred vision; no numbness of feet; no calluses on feetCare Management - HypertensionReported bypatient.Self Care:not under emotional stress Severity:symptoms are improving; does not interfere with daily activities Associated Symptoms:no dizziness; no lightheadedness; no chest pain; no shortness of breath; no palpitations; no edema; no calf muscle cramps; no blurred vision; no confusion; no headaches; no fatigue here for rechkdoing well very vigorous Aman Sarah DO [address] [place], [address], [facility] 11/05/2023 13:57:25 4 text/htm l Care Management - DiabetesReported bypatient.Self Care:seeing eye doctor yearly for dilated eye exam; checking feet regularly; normal range of home blood sugars (in the low 100s); no side effects from medications Associated Symptoms:symptoms are usually well controlled; no fatigue; no dizziness; no excessive sweating; no headaches; no confusion; no increased thirst; no increased appetite; no increased urination; no blurred vision; no numbness of feet; no calluses on feet Aman Sarah, DO [address] [facility], [place], [address], [facility] 05/05/2024 11:55:27 OBGyn Episode No OBEpisode recorded.
[2024-12-10 13:49] LABS: Estimated Average Glucose 123 mg/dL; Hemoglobin A1C 161.2721 umol/L; Hemoglobin A1c % 5.9 % (<6.0)
== END 2024-12-10 09:02 | disposition home or self-care (01) ==
LOC: HO.MANLDS 09:01
PROVIDERS: Visit Provider Internal Medicine
DX: R73.01 Impaired fasting glucose (principal)
CPT/HCPCS: 36415; 83036